=== PATIENT | female | born 1940 | race Caucasian/White ===

== ENCOUNTER 2021-11-19 12:36 | Outpatient (REF) | payer OTHER, SELFPAY ==
--- NOTE | ~2021-11-19 | XR_ITS ---
EXAMINATION: XR LUMBAR SPINE XR THORACIC SPINE XR RIBS CLINICAL INFORMATION: Chest pain, back pain and bilateral rib pain. COMPARISON: None TECHNIQUE: Thoracic spine, 2 views. Chest and bilateral ribs, 3 views. Lumbar spine with bending, 5 views. FINDINGS: THORACIC SPINE: There is a normal thoracic kyphosis. The vertebral heights and alignment are normal. There is mild loss of disc height at all thoracic disc levels with mild spondylosis. No visible acute fracture, dislocation or lytic process is seen. The paravertebral soft tissues are normal. LUMBAR SPINE: There is a mild dextroscoliosis. Lumbar lordosis is maintained normal. There is loss of the L3-L4, L4-L5 and L5-S1 disc heights with mild ventral and left lateral spondylosis at L1-L2 through the L3-L4 disc levels. There is grade 1 anterolisthesis of L3 over L4. CHEST: The lungs are well expanded and clear of an acute process. The heart size and pulmonary vascularity are normal. No gross bony abnormality is seen. There is moderate spondylosis of the dorsal spine. RIBS: Multiple views of the bilateral ribs reveal no visible fracture or bony abnormality. The soft tissues are normal. XR/XR thoracic spine 3V IMPRESSION: Unremarkable dorsal spine exam. Degenerative disc changes at the L3-L4 and L4-L5 disc levels with grade 1 anterolisthesis of L3 over L4. Unremarkable bilateral ribs. Unremarkable chest exam.
--- NOTE | ~2021-11-19 | XR_ITS ---
EXAMINATION: XR LUMBAR SPINE XR THORACIC SPINE XR RIBS CLINICAL INFORMATION: Chest pain, back pain and bilateral rib pain. COMPARISON: None TECHNIQUE: Thoracic spine, 2 views. Chest and bilateral ribs, 3 views. Lumbar spine with bending, 5 views. FINDINGS: THORACIC SPINE: There is a normal thoracic kyphosis. The vertebral heights and alignment are normal. There is mild loss of disc height at all thoracic disc levels with mild spondylosis. No visible acute fracture, dislocation or lytic process is seen. The paravertebral soft tissues are normal. LUMBAR SPINE: There is a mild dextroscoliosis. Lumbar lordosis is maintained normal. There is loss of the L3-L4, L4-L5 and L5-S1 disc heights with mild ventral and left lateral spondylosis at L1-L2 through the L3-L4 disc levels. There is grade 1 anterolisthesis of L3 over L4. CHEST: The lungs are well expanded and clear of an acute process. The heart size and pulmonary vascularity are normal. No gross bony abnormality is seen. There is moderate spondylosis of the dorsal spine. RIBS: Multiple views of the bilateral ribs reveal no visible fracture or bony abnormality. The soft tissues are normal. XR/XR ribs BI min 4V w CXR1V IMPRESSION: Unremarkable dorsal spine exam. Degenerative disc changes at the L3-L4 and L4-L5 disc levels with grade 1 anterolisthesis of L3 over L4. Unremarkable bilateral ribs. Unremarkable chest exam.
--- NOTE | ~2021-11-19 | XR_ITS ---
EXAMINATION: XR LUMBAR SPINE XR THORACIC SPINE XR RIBS CLINICAL INFORMATION: Chest pain, back pain and bilateral rib pain. COMPARISON: None TECHNIQUE: Thoracic spine, 2 views. Chest and bilateral ribs, 3 views. Lumbar spine with bending, 5 views. FINDINGS: THORACIC SPINE: There is a normal thoracic kyphosis. The vertebral heights and alignment are normal. There is mild loss of disc height at all thoracic disc levels with mild spondylosis. No visible acute fracture, dislocation or lytic process is seen. The paravertebral soft tissues are normal. LUMBAR SPINE: There is a mild dextroscoliosis. Lumbar lordosis is maintained normal. There is loss of the L3-L4, L4-L5 and L5-S1 disc heights with mild ventral and left lateral spondylosis at L1-L2 through the L3-L4 disc levels. There is grade 1 anterolisthesis of L3 over L4. CHEST: The lungs are well expanded and clear of an acute process. The heart size and pulmonary vascularity are normal. No gross bony abnormality is seen. There is moderate spondylosis of the dorsal spine. RIBS: Multiple views of the bilateral ribs reveal no visible fracture or bony abnormality. The soft tissues are normal. XR/XR lumbar spine 6V w bending IMPRESSION: Unremarkable dorsal spine exam. Degenerative disc changes at the L3-L4 and L4-L5 disc levels with grade 1 anterolisthesis of L3 over L4. Unremarkable bilateral ribs. Unremarkable chest exam.
[2021-11-19 14:49] LABS: Basophils Absolute Auto 0.1 X10*3/uL (0.0-0.2); Basophils Percent Auto 0.8 % (0-2); Eosinophils Absolute Auto 0.1 X10*3/uL (0.0-0.4); Eosinophils Percent Auto 1.3 % (0-4); Hemoglobin 13.8 g/dl (12.0-16.0); Imm Gran Abs Auto 0.04 X10*3/uL (0.00-0.03); Imm Gran Pct Auto 0.6 % (0.0-0.4); Lymphocytes Absolute Auto 2.1 X10*3/uL (1.2-4.9); Lymphocytes Percent Auto 32.2 % (20-40); MANUAL DIFF FLAG SCAN; Mean Corpuscular HGB Conc 32.9 g/dl (31.0-35.0); Mean Corpuscular Hemoglobin 31.4 pg (27.0-33.0); Mean Corpuscular Volume 95.7 fL (80.0-98.0); Mean Platelet Volume 11.7 fL (9.4-12.3); Monocytes Absolute Auto 0.5 X10*3/uL (0.1-1.2); Monocytes Percent Auto 7.5 % (2-11); Neutrophils Absolute Auto 3.7 x10*3/uL (2.0-8.3); Neutrophils Percent Auto 57.6 % (45-73); PLT CLUMP 1; Red Blood Count 4.39 X10*6/uL (4.20-5.50); Red Cell Distribution Width 13.2 % (11.0-16.0); SCAN SMEAR FLAG 1
[2021-11-19 14:57] LABS: Estimated Average Glucose 160 mg/dL; Hemoglobin A1c % 7.2 %
[2021-11-19 15:17] LABS: Alanine Aminotransferase 18 U/L (0-31); Albumin Level 4.1 g/dL (3.5-5.0); Alkaline Phosphatase 64 U/L (39-117); Anion Gap 10 (12-20); Aspartate Amino Transferase 17 U/L (5-31); Bilirubin Direct 0.2 mg/dL (0.0-0.5); Bilirubin Total 0.6 mg/dL (0.0-1.0); Blood Urea Nitrogen 17 mg/dL (9-16); Calcium 9.6 mg/dL (8.4-10.2); Carbon Dioxide 29 mmol/L (22-29); Chloride 105 mmol/L (96-108); Estimated Glomerular Filt Rate 55; Glucose Random 295 mg/dL (60-115); Potassium 4.8 mmol/L (3.3-5.1); Sodium 139 mmol/L (135-145); Total Protein 6.7 g/dL (6.5-8.0)
[2021-11-19 15:29] LABS: White Blood Count 6.4 X10*3/uL (4.8-10.8)
[2021-11-19 15:30] LABS: Platelet Count 136 X10*3/uL (160-400); SLIDE REVIEW VERIFIED
[2021-11-19 15:48] LABS: Vitamin B12 365 pg/mL (200-900)
[2021-11-22 16:54] LABS: Vitamin D 25-OH, D2 <4 ng/mL; Vitamin D 25-OH, D3 17 ng/mL; Vitamin D 25-OH, Total 17 ng/mL (30-100)
== END 2021-11-19 12:37 | disposition home or self-care (01) ==
LOC: HO.XRAY 12:36
PROVIDERS: PCP Internal Medicine; Visit Provider Nurse Practitioner Family
DX: R07.89 Other chest pain (principal); M47.816 Spondylosis without myelopathy or radiculopathy, lumbar region; K74.60 Unspecified cirrhosis of liver; E11.40 Type 2 diabetes mellitus with diabetic neuropathy, unspecified
CPT/HCPCS: 36415; 71111; 72072; 72114; 80048; 80076; 82306; 82607; 82746; 83036; 85025; 99202

== ENCOUNTER → 2021-11-26 13:08 | Outpatient (BNVA) | payer OTHER, SELFPAY | PROVIDERS: PCP Internal Medicine; Visit Provider Nurse Practitioner Family | DX: M47.816 Spondylosis without myelopathy or radiculopathy, lumbar region (principal); R07.89 Other chest pain; R10.9 Unspecified abdominal pain; R12 Heartburn; E55.9 Vitamin D deficiency, unspecified; K74.60 Unspecified cirrhosis of liver; Z87.19 Personal history of other diseases of the digestive system | CPT/HCPCS: 99212 ==

== ENCOUNTER 2022-05-24 17:48 | Emergency (ER) | payer OTHER, SELFPAY ==
--- NOTE | ~2022-05-24 | XR_ITS ---
EXAMINATION: XR lumbar spine 2-3V, XR hip LT min 2V, XR ribs LT min 3V w CXR1V, XR sacrum coccyx min 2V CLINICAL INFORMATION: Reason for Exam pain, fall COMPARISON: Lumbar spine radiographs 11/19/2021 chest and rib radiographs 11/19/2021 TECHNIQUE: PA chest, 3 views left ribs; 3 views lumbosacral spine; AP pelvis, 2 views left hip; AP and lateral views sacrum and coccyx FINDINGS: Chest and RIBS: The lungs appear clear. No airspace consolidation. No pleural effusion or pneumothorax. Normal cardiomediastinal silhouette and pulmonary vascularity. Suture anchors in the bilateral humeral heads consistent with prior rotator cuff repair. No acute displaced left-sided rib fractures identified. Lumbosacral spine: Approximately 8 mm grade 1 anterolisthesis of L3 upon L4 secondary to advanced facet arthrosis. Minimal retrolisthesis at L2-L3. No additional subluxation. Vertebral body heights are maintained. No acute fracture. Multilevel degenerative disc disease and disc height loss, endplate sclerosis and proliferative change most pronounced at L1-L2 and L2-L3. Suspected ankylosis at L5-S1 associated ankylosis of the facet joints at L4-S1. Extensive aortic and proximal iliac vascular calcifications. Sacrum and coccyx: SI joints are congruent and intact with mild subchondral sclerosis. No acute displaced fracture or dislocation Pelvis and left hip: Healed fracture deformities of the right parasymphyseal pubic bone and right inferior pubic ramus. No acute fracture or dislocation. Mild joint space narrowing at both hips with subchondral sclerosis and osteophytes consistent with mild osteoarthritis. Pubic symphysis is congruent and intact. XR/XR ribs LT min 3V w CXR1V IMPRESSION: 1. No acute pulmonary disease. 2. No acute displaced left-sided rib fracture identified. 3. No acute fracture or dislocation of the pelvis or left hip. 4. No appreciable sacral or coccygeal fracture. 5. Multilevel degenerative disc disease in the lumbar spine. 6. Healed fracture deformities of the right parasymphyseal pubic bone and right inferior pubic ramus. 7. Mild bilateral hip joint osteoarthritis.
--- NOTE | ~2022-05-24 | XR_ITS ---
EXAMINATION: XR lumbar spine 2-3V, XR hip LT min 2V, XR ribs LT min 3V w CXR1V, XR sacrum coccyx min 2V CLINICAL INFORMATION: Reason for Exam pain, fall COMPARISON: Lumbar spine radiographs 11/19/2021 chest and rib radiographs 11/19/2021 TECHNIQUE: PA chest, 3 views left ribs; 3 views lumbosacral spine; AP pelvis, 2 views left hip; AP and lateral views sacrum and coccyx FINDINGS: Chest and RIBS: The lungs appear clear. No airspace consolidation. No pleural effusion or pneumothorax. Normal cardiomediastinal silhouette and pulmonary vascularity. Suture anchors in the bilateral humeral heads consistent with prior rotator cuff repair. No acute displaced left-sided rib fractures identified. Lumbosacral spine: Approximately 8 mm grade 1 anterolisthesis of L3 upon L4 secondary to advanced facet arthrosis. Minimal retrolisthesis at L2-L3. No additional subluxation. Vertebral body heights are maintained. No acute fracture. Multilevel degenerative disc disease and disc height loss, endplate sclerosis and proliferative change most pronounced at L1-L2 and L2-L3. Suspected ankylosis at L5-S1 associated ankylosis of the facet joints at L4-S1. Extensive aortic and proximal iliac vascular calcifications. Sacrum and coccyx: SI joints are congruent and intact with mild subchondral sclerosis. No acute displaced fracture or dislocation Pelvis and left hip: Healed fracture deformities of the right parasymphyseal pubic bone and right inferior pubic ramus. No acute fracture or dislocation. Mild joint space narrowing at both hips with subchondral sclerosis and osteophytes consistent with mild osteoarthritis. Pubic symphysis is congruent and intact. XR/XR lumbar spine 2-3V IMPRESSION: 1. No acute pulmonary disease. 2. No acute displaced left-sided rib fracture identified. 3. No acute fracture or dislocation of the pelvis or left hip. 4. No appreciable sacral or coccygeal fracture. 5. Multilevel degenerative disc disease in the lumbar spine. 6. Healed fracture deformities of the right parasymphyseal pubic bone and right inferior pubic ramus. 7. Mild bilateral hip joint osteoarthritis.
--- NOTE | ~2022-05-24 | CT_ITS ---
EXAMINATION: CT LUMBAR SPINE WITH IV CONTRAST CLINICAL INFORMATION: Question cauda equina. COMPARISON: CT dated 12/27/2012 TECHNIQUE: Multidetector volumetric imaging was obtained through the lumbar spine following intravenous administration of 85 cc Omnipaque 350. Multiplanar reformatted images in coronal and sagittal orientations were submitted. This CT examination was performed using dose optimization techniques as appropriate, variously including the following: *Automated exposure control *Adjustment of mA and/or kV according to patient size (this includes techniques or standardized protocols for targeted exams where dose is matched to indication/reason for exam; i.e. extremities or head) *Use of iterative reconstruction technique DLP: 752 mGy-cm FINDINGS: Bones are osteopenic. Vertebral body heights are normal. No acute fractures. Anterolisthesis of L3 on L4 measures 9 mm and is grade 2. No additional spondylolisthesis. No acute osseous lesions are identified. There is ankylosis of L4-S1. Multilevel degenerative disc disease is characterized by loss of vertebral disc height with endplate osteophytes and disc bulges. There is also marked multilevel facet arthropathy, most severe at L3-L4. Atherosclerotic calcifications are present in the abdominal aorta and iliac arteries. No aneurysmal dilatation. Status post cholecystectomy. No acute intra-abdominal or intrapelvic soft tissue abnormalities are identified on these images. Paraspinal soft tissues are otherwise unremarkable. No enhancing central canal lesions are identified on these images. L1-L2: Mild degenerative disc disease and moderate facet arthropathy. No central canal or neural foraminal encroachment. L2-L3: Diffuse disc bulge with severe facet arthropathy and moderate degenerative disc disease. The disc bulge combines with the facet arthropathy and ligamentum flavum thickening to produce [id number] central canal stenosis. Disc bulge and facet arthropathy produce moderate left neural foraminal encroachment. L3-L4: The grade 2 anterolisthesis combines with severe facet arthropathy, a diffuse disc bulge, and ligamentum thickening to produce severe central stenosis. There is marked narrowing of the subarticular zones, likely producing mass effect upon the traversing L4 nerve roots. There is mild to moderate bilateral neural foraminal encroachment due to the anterolisthesis and uncovering discs. L4-5: Ankylosis at the interbody space and facet joints. Minimal neural foraminal encroachment. L5-S1: Ankylosis at the facet joints and interbody space. No central canal stenosis. Mild mass effect upon the exiting L5 nerve roots in the far lateral position by marginal osteophytes. CT/CT lumbar spine w IV con IMPRESSION: 1. Severe central stenosis at L3-L4 due to grade 2 anterolisthesis, a disc bulge, and ligamentum flavum thickening. 2. [id number] central canal stenosis at L2-L3. 3. Ankylosis of L4-S1.
--- NOTE | ~2022-05-24 | CT_ITS ---
EXAMINATION: CT HEAD WITHOUT CONTRAST CLINICAL INFORMATION: Dizziness. Fall. Mental status change. COMPARISON: None TECHNIQUE: Contiguous axial imaging was performed from the skull base to vertex without intravenous administration of contrast. This CT examination was performed using dose optimization techniques as appropriate, variously including the following: *Automated exposure control *Adjustment of mA and/or kV according to patient size (this includes techniques or standardized protocols for targeted exams where dose is matched to indication/reason for exam; i.e. extremities or head) *Use of iterative reconstruction technique DLP: 701 mGy-cm FINDINGS: There is no evidence of an extra-axial collection. There is no evidence of intra or extra-axial hemorrhage. The ventricles and extra-axial CSF spaces are appropriate for patient's age. There is mild nonspecific periventricular white matter disease. No mass, mass effect or infarct. No skull fracture. Visualized paranasal sinuses, mastoid air cells and middle ears are clear. CT/CT head/brain wo IV con IMPRESSION: No acute findings. Mild nonspecific periventricular white matter disease.
--- NOTE | ~2022-05-24 | XR_ITS ---
EXAMINATION: XR lumbar spine 2-3V, XR hip LT min 2V, XR ribs LT min 3V w CXR1V, XR sacrum coccyx min 2V CLINICAL INFORMATION: Reason for Exam pain, fall COMPARISON: Lumbar spine radiographs 11/19/2021 chest and rib radiographs 11/19/2021 TECHNIQUE: PA chest, 3 views left ribs; 3 views lumbosacral spine; AP pelvis, 2 views left hip; AP and lateral views sacrum and coccyx FINDINGS: Chest and RIBS: The lungs appear clear. No airspace consolidation. No pleural effusion or pneumothorax. Normal cardiomediastinal silhouette and pulmonary vascularity. Suture anchors in the bilateral humeral heads consistent with prior rotator cuff repair. No acute displaced left-sided rib fractures identified. Lumbosacral spine: Approximately 8 mm grade 1 anterolisthesis of L3 upon L4 secondary to advanced facet arthrosis. Minimal retrolisthesis at L2-L3. No additional subluxation. Vertebral body heights are maintained. No acute fracture. Multilevel degenerative disc disease and disc height loss, endplate sclerosis and proliferative change most pronounced at L1-L2 and L2-L3. Suspected ankylosis at L5-S1 associated ankylosis of the facet joints at L4-S1. Extensive aortic and proximal iliac vascular calcifications. Sacrum and coccyx: SI joints are congruent and intact with mild subchondral sclerosis. No acute displaced fracture or dislocation Pelvis and left hip: Healed fracture deformities of the right parasymphyseal pubic bone and right inferior pubic ramus. No acute fracture or dislocation. Mild joint space narrowing at both hips with subchondral sclerosis and osteophytes consistent with mild osteoarthritis. Pubic symphysis is congruent and intact. XR/XR sacrum coccyx min 2V IMPRESSION: 1. No acute pulmonary disease. 2. No acute displaced left-sided rib fracture identified. 3. No acute fracture or dislocation of the pelvis or left hip. 4. No appreciable sacral or coccygeal fracture. 5. Multilevel degenerative disc disease in the lumbar spine. 6. Healed fracture deformities of the right parasymphyseal pubic bone and right inferior pubic ramus. 7. Mild bilateral hip joint osteoarthritis.
--- NOTE | ~2022-05-24 | MR_ITS ---
EXAMINATION: MR LUMBAR SPINE WITHOUT CONTRAST CLINICAL INFORMATION: r/o cauda equina, back pain/urinary retention COMPARISON: CT lumbar spine 05/24/2022 TECHNIQUE: MRI of the lumbar spine was obtained using routine sequences without contrast. FINDINGS: Right convex curvature of the lumbar spine centered at L2-L3. There is right lateral listhesis of L3 on L4. Grade 1 anterolisthesis of L3 on L4 measuring approximately 7 mm. Trace retrolisthesis of L2 on L3. No suspicious marrow signal or focal osseous lesion. T12 vertebral body hemangioma. Endplate marrow edema at L5-S1. The vertebral body heights are maintained. Multilevel degenerative disc desiccation and height loss. There is partial ankylosis across the L5-S1 disc space.. The conus medullaris terminates at the level of L1-L2. The distal spinal cord is normal in appearance. The cauda equina nerve roots appear normal. Symmetric fatty atrophy of the lumbar paravertebral musculature. Limited evaluation of the intra-abdominal structures without significant abnormalities. The abdominal aorta is of normal contour and caliber. Partially visualized left-sided sacral Tarlov cysts. SPINAL LEVELS: T12-L1: No significant spinal canal or neural foraminal narrowing L1-L2: Minimal disc bulge and mild to moderate facet arthropathy. No significant spinal canal or neural foraminal narrowing. L2-L3: Left eccentric disc bulge. Moderate to severe facet arthropathy. Ligamentum flavum thickening. Mild subarticular zone narrowing. No significant central spinal canal stenosis. Mild to moderate right and moderate to severe left neural foraminal narrowing. L3-L4: Anterolisthesis with posterior disc uncovering and superimposed small disc bulge. Severe facet arthropathy. Ligamentum flavum thickening. There is mild to moderate central spinal canal stenosis and bilateral subarticular zone narrowing. Mild bilateral neural foraminal narrowing. L4-L5: Severe facet arthropathy with facet joint ankylosis. No significant spinal canal or neural foraminal narrowing. L5-S1: No significant spinal canal or neural foraminal narrowing MR/MR lumbar spine wo con IMPRESSION: No severe spinal canal stenosis or cauda equina nerve root compression. Multilevel lumbar spondylosis as detailed above, most notable at L3-L4 where there is grade 1 anterolisthesis on the basis of advanced facet arthropathy, mild to moderate central spinal canal stenosis, bilateral subarticular zone narrowing, and mild bilateral neural foraminal narrowing. Neural foraminal narrowing appears worst and moderate to severe on the left at L2-L3.
--- NOTE | 2022-05-24 17:55 | ECG_ITS ---
Test Reason : FALL Blood Pressure : / mmHG Vent. Rate : 076 BPM Atrial Rate : 076 BPM P-R Int : 154 ms QRS Dur : 082 ms QT Int : 376 ms P-R-T Axes : 031 -41 038 degrees QTc Int : 423 ms Normal sinus rhythm Left axis deviation Low voltage QRS Nonspecific T wave abnormality RSR' or QR pattern in V1 suggests right ventricular conduction delay Abnormal ECG No previous ECGs available Referred By: Harper Osullivan Electronically Signed By:JORGE TRAN MD
--- NOTE | 2022-05-24 18:04 | ED.GENADULT ---
HPI - General Adult General Chief complaint: Fall Stated complaint: TRIP/FALL OVER WALKER, BACK PAIN Time Seen by Provider: 05/24/22 17:50 Source: patient and EMS Mode of arrival: EMS Limitations: no limitations History of Present Illness HPI narrative: patient comes to the emergency room complaining of a fall. Patient coming from home via EMS. Patient reports that she was trying to get to the bathroom, patient states that she lost her balance and started walking backwards and then fell backwards landing on the floor. Patient states that she did not hit her head, did not lose consciousness, not on blood thinners. Patient complaining of severe pain in the lower back around the coccyx. Patient has an ecchymosis on the right mcelroy but is not hurting as much as her lower back. Patient also complaining of mild rib pain on the left side. Patient states that she fell 9 hours prior to arrival to emergency room. Patient was able to drag herself back to bed and stayed there until her son found her and called 911. Patient denies loss of consciousness. Patient took Tylenol prior to arrival but states is not helping much. Related Data Home Medications Medication Instructions Recorded Confirmed glipizide 10 mg tablet 10 mg PO BID 11/19/21 metoprolol tartrate 25 mg tablet 25 mg PO BID 11/19/21 rosuvastatin 10 mg tablet 10 mg PO BEDTIME 11/19/21 Previous Rx's Medication Instructions Recorded cholecalciferol (vitamin D3) 50 50 mcg PO DAILY vitamin D 11/26/21 mcg (2,000 unit) capsule deficiency 30 days #30 caps omeprazole 40 mg capsule,delayed 40 mg PO DAILY heartburn 30 days 11/26/21 release #30 caps acetaminophen 650 mg 1,300 mg PO Q12H PRN for pain 30 01/08/22 tablet,extended release days #120 tabs Allergies Allergy/AdvReac Type Severity Reaction Status Date / Time hydromorphone [From DILAUDID] AdvReac Intermediate NAUSEA & Verified 11/26/21 13:16 VOMITING From PLAVIX Allergy Unknown ANAPHYLAXIS Uncoded 11/19/21 12:51 Review of Systems Review of Systems: Constitutional : No Weight loss, No Fever, No Chills, No Night Sweats, No Fatigue, No Malaise ENT/Mouth : No Hearing loss, No Ear Pain, No Nasal Congestion, No Sinus Pain, No Hoarseness, No sore throat, No Rhinorrhea, No Swallowing Difficulty Eyes: No Eye Pain, No Swelling, No Redness, No Foreign Body, No Discharge, No Vision Changes Cardiovascular : No Chest Pain, No SOB, No Dyspnea on Exertion, No Orthopnea, No Edema, No Palpitations Respiratory : No Cough, No Sputum, No Wheezing, No Smoke Exposure, No Dyspnea Gastrointestinal : No Nausea, No Vomiting, No Diarrhea, No Constipation, No abdominal Pain, No Hematochezia, No Melena Genitourinary : no irregular bleeding, No Dysuria, No Urinary Frequency, No Hematuria, No Urinary Incontinence, No Urgency, No Flank Pain, No Urinary Flow Changes, No Hesitancy Musculoskeletal : Complaining of an ecchymosis to the right mcelroy, complaining of pain in the coccyx and in the left ribs posteriorly. Skin : No Skin Lesions, No rash Neuro : No Weakness, No Numbness, No Paresthesias, No Loss of Consciousness, No Dizziness, No Headache Psych : No Anxiety/Panic, No Depression, No SI/HI/AH/VH, No Social Issues, Heme/Lymph: No Bruising, No Bleeding,No Lymphadenopathy Endocrine : No Polyuria, No Polydipsia, No Temperature Intolerance PMFSH Past Medical History Medical History Abdominal pain Cataract Cervical osteoarthritis Chest pain Cirrhosis Coronary artery disease Degenerative joint disease (DJD) of hip Diabetes mellitus Diverticulosis of colon Esophagitis Gastritis Hyperlipidemia Microalbuminuria Peripheral neuropathy Peripheral vascular disease Scalp irritation Tobacco use disorder Surgical History H/O breast surgery H/O colonoscopy H/O esophagogastroduodenoscopy H/O foot surgery History of cholecystectomy History of hysterectomy History of lumbar spinal fusion History of repair of rotator cuff History of tonsillectomy Total knee replacement status Social History Social History Alcohol intake: current Alcohol intake frequency: holidays/special occasions only Alcohol type: wine Smoked in Last 30 Days: Yes Use of substances other than those prescribed or required for medical reasons: No Advance Directives: No Advance Directives Information Provided: No Physical Exam ED Vital Signs: Vital Signs - 24 hr 05/24/22 18:33 05/24/22 18:59 05/24/22 21:24 Temperature 98.1 F 98.1 F 98.2 F Pulse Rate 77 76 78 Respiratory Rate 22 H 16 19 Blood Pressure 154/50 H 154/50 H 117/36 L Pulse Oximetry 100 100 100 Oxygen Delivery Method Room Air Room Air Room Air BMI result Body Mass Index 22.8 Const Other: Appearance: Alert. Oriented X3. Anxious Eyes: Pupils equal, round and reactive to light. ENT: Pharynx normal. Neck: Normal inspection. Neck supple. No lymph nodes noted. No crepitus CVS: Normal heart rate and rhythm. Pulses normal. Normal S1 and S2 Respiratory: No respiratory distress. Breath sounds normal. No Wheezing. No rales Abdomen: Soft and nontender. No rigidity. No distention. back: Pain to palpation over the coccyx area, no pain to palpation over the cervical /thoracic, no palpable step-offs. Skin: Skin warm and dry. Normal skin color. Normal skin turgor. Extremities: No lower extremity edema. 5 cm x 3 cm ecchymosis in the mcelroy on the right leg , does not seem to have significant pain to palpation over the hip area, able to flex and extend. However this triggers pain in the lumbar a Neuro: Oriented X 3. No motor deficit. No sensory deficit. Moving all extremities. No slurred speech. CN 2 through 12 grossly intact Psych: calm, cooperative, normal affect Course Course Course Narrative: patient's x-rays are negative for fracture. Patient complaining of ongoing back pain in the coccyx area. 22:30, I was informed by the patient's nurse that the patient is having difficulty urinating. Earlier today, patient receive opioids. Patient is retaining 664 ML of urine. Lopez will be inserted. Patient has severe neuropathy in her lower extremities, she has almost no sensation. Patient cannot feel the reflex hammer/ sharp objects in her feet. patient has positive patellar reflexes. Digital rectal exam/rectal tone is normal. patient is able to stand but says that her back hurts and radiates down towards the left leg. at this time, we do not have MRI, CT scan pending. Also, I was informed by the patient's nurse and nurse outreach case manager, that the patient's brother wants to pick her up from the hospital and take her home. However, the patient states that she cannot go home because she is in too much pain and is afraid that no one can help her throughout the night. Her brother will be traveling tomorrow. patient is alert and oriented x3, coherent, patient requesting to not be discharge regardless of her brother's requests CT scan shows disc bulging, No signs of cauda equina. urinary retention likely secondary to opioids Case management and physical therapy in the morning. Physician observation started at 00:17 Medications Administered Discontinued Medications Generic Name Dose Route Start Last Admin Trade Name Matt PRN Reason Stop Dose Admin Sodium Chloride 1,000 mls @ 999 mls/hr 05/24/22 17:55 05/24/22 21:41 Ns IVCONT 05/24/22 18:55 Infused .Q1H1M ONE Infusion Iohexol 100 ml 05/24/22 23:18 05/24/22 23:19 Iohexol 350 Mg/Ml 100 Ml Infus..Btl IV 05/24/22 23:19 85 ml ONCE ONE Administration Tramadol HCl 50 mg 05/24/22 18:03 05/24/22 20:38 Tramadol Hcl 50 Mg Tablet PO 05/24/22 18:04 50 mg ONCE ONE Administration Medical Decision Making Lab Data Result diagrams: 05/24/22 19:33 05/24/22 19:33 Labs: Lab Results 05/24/22 05/24/22 05/24/22 Range/Units 19:33 19:33 19:33 WBC 11.2 H (4.8-10.8) X10*3/uL RBC 4.34 (4.20-5.50) X10*6/uL Hgb 13.2 (12.0-16.0) g/dl Hct 40.4 (37.0-47.0) % MCV 93.1 (80.0-98.0) fL MCH 30.4 (27.0-33.0) pg MCHC 32.7 (31.0-35.0) g/dl RDW 12.2 (11.0-16.0) % Plt Count 119 L (160-400) X10*3/uL MPV 9.8 (9.4-12.3) fL Immature Gran % (Auto) 0.4 (0.0-0.4) % Neut % (Auto) 70.0 (45-73) % Lymph % (Auto) 19.6 L (20-40) % Davison % (Auto) 8.8 (2-11) % Eos % (Auto) 0.8 (0-4) % Baso % (Auto) 0.4 (0-2) % Lymph # (Auto) 2.2 (1.2-4.9) X10*3/uL Davison # (Auto) 1.0 (0.1-1.2) X10*3/uL Eos # (Auto) 0.1 (0.0-0.4) X10*3/uL Baso # (Auto) 0.0 (0.0-0.2) X10*3/uL Abs Immat Gran (auto) 0.05 H (0.00-0.03) X10*3/uL Absolute Neuts (auto) 7.9 (2.0-8.3) x10*3/uL Absolute Nucleated RBC 0.000 (0.0-0.012) X10*3/uL Nucleated RBC % (auto) 0.0 (0.0-0.2) /100WBC Sodium 142 (135-145) mmol/L Potassium 4.4 (3.3-5.1) mmol/L Chloride 106 (96-108) mmol/L Carbon Dioxide 26 (22-29) mmol/L Anion Gap 14 (12-20) BUN 20 H (9-16) mg/dL Creatinine 0.87 (0.5-1.4) mg/dL Estim Creat Clear Calc 49.0 Estimated GFR > 60 Random Glucose 81 (60-115) mg/dL Calcium 9.7 (8.4-10.2) mg/dL Total Bilirubin 0.9 (0.0-1.0) mg/dL Direct Bilirubin 0.3 (0.0-0.5) mg/dL AST 43 H (5-31) U/L ALT 30 (0-31) U/L Alkaline Phosphatase 72 (39-117) U/L Total Creatine Kinase (26-140) U/L Troponin I High Sens 5.3 (<3.5-17.0) ng/L Total Protein 6.7 (6.5-8.0) g/dL Albumin 4.0 (3.5-5.0) g/dL Urine Color Urine Appearance Urine pH (5.0-9.0) Ur Specific [place] (1.005-1.025) Urine Protein (Neg-Trace) mg/dL Urine Glucose (UA) (Negative) mg/dL Urine Ketones (Negative) mg/dL Urine Blood (Negative) Urine Nitrite (Negative) Ur Leukocyte Esterase (Negative) Urine RBC (0-2) /HPF Urine WBC (0-5) /HPF Ur Squamous Epith Cells (0-2) /HPF Urine Bacteria (None Seen) Hyaline Casts (0-2) /LPF COVID-19 (JOSSELINE) (Negative) COVID-19 Clin Com 05/24/22 05/24/22 05/24/22 Range/Units 19:33 20:16 23:01 WBC (4.8-10.8) X10*3/uL RBC (4.20-5.50) X10*6/uL Hgb (12.0-16.0) g/dl Hct (37.0-47.0) % MCV (80.0-98.0) fL MCH (27.0-33.0) pg MCHC (31.0-35.0) g/dl RDW (11.0-16.0) % Plt Count (160-400) X10*3/uL MPV (9.4-12.3) fL Immature Gran % (Auto) (0.0-0.4) % Neut % (Auto) (45-73) % Lymph % (Auto) (20-40) % Davison % (Auto) (2-11) % Eos % (Auto) (0-4) % Baso % (Auto) (0-2) % Lymph # (Auto) (1.2-4.9) X10*3/uL [place]ison # (Auto) (0.1-1.2) X10*3/uL Eos # (Auto) (0.0-0.4) X10*3/uL Baso # (Auto) (0.0-0.2) X10*3/uL Abs Immat Gran (auto) (0.00-0.03) X10*3/uL Absolute Neuts (auto) (2.0-8.3) x10*3/uL Absolute Nucleated RBC (0.0-0.012) X10*3/uL Nucleated RBC % (auto) (0.0-0.2) /100WBC Sodium (135-145) mmol/L Potassium (3.3-5.1) mmol/L Chloride (96-108) mmol/L Carbon Dioxide (22-29) mmol/L Anion Gap (12-20) BUN (9-16) mg/dL Creatinine (0.5-1.4) mg/dL Estim Creat Clear Calc Estimated GFR Random Glucose (60-115) mg/dL Calcium (8.4-10.2) mg/dL Total Bilirubin (0.0-1.0) mg/dL Direct Bilirubin (0.0-0.5) mg/dL AST (5-31) U/L ALT (0-31) U/L Alkaline Phosphatase (39-117) U/L Total Creatine Kinase 77 (26-140) U/L Troponin I High Sens (<3.5-17.0) ng/L Total Protein (6.5-8.0) g/dL Albumin (3.5-5.0) g/dL Urine Color Yellow Urine Appearance Clear Urine pH 7.0 (5.0-9.0) Ur Specific [place] 1.015 (1.005-1.025) Urine Protein Negative (Neg-Trace) mg/dL Urine Glucose (UA) Negative (Negative) mg/dL Urine Ketones Negative (Negative) mg/dL Urine Blood Trace H (Negative) Urine Nitrite Negative (Negative) Ur Leukocyte Esterase Negative (Negative) Urine RBC 0-2 (0-2) /HPF Urine WBC 0-5 (0-5) /HPF Ur Squamous Epith Cells 0-2 (0-2) /HPF Urine Bacteria None Seen (None Seen) Hyaline Casts 0-2 (0-2) /LPF COVID-19 (JOSSELINE) Negative (Negative) COVID-19 Clin Com See Note Discharge Plan Discharge Clinical Impression: Fall, Lumbar back pain, Acute urinary retention Patient Disposition: Still a Patient Prescriptions: No Action acetaminophen 650 mg tablet extended release 1,300 mg PO Q12H PRN (Reason: for pain) 30 Days Qty: 120 3RF omeprazole 40 mg capsule,delayed release(DR/EC) 40 mg PO DAILY 30 Days Qty: 30 1RF Rx Instructions: Take it 30 minutes before meals once a day cholecalciferol (vitamin D3) 50 mcg (2,000 unit) capsule 50 mcg PO DAILY 30 Days Qty: 30 3RF glipizide 10 mg tablet 10 mg PO BID rosuvastatin 10 mg tablet 10 mg PO BEDTIME metoprolol tartrate 25 mg tablet 25 mg PO BID
[2022-05-24 18:33] VITALS: BP 150/70; BP 154/50; PULSE 77; PULSE 80; RESP 22; TEMP 36.7; O2SAT 100; BMI 22.8
[2022-05-24 18:59] VITALS: BP 154/50; PULSE 76; RESP 16; TEMP 36.7; O2SAT 100
[2022-05-24 19:37] LABS: MANUAL DIFF FLAG NO
[2022-05-24 19:39] LABS: Basophils Percent Auto 0.4 % (0-2); Eosinophils Absolute Auto 0.1 X10*3/uL (0.0-0.4); Eosinophils Percent Auto 0.8 % (0-4); Hematocrit 40.4 % (37.0-47.0); Hemoglobin 13.2 g/dl (12.0-16.0); Imm Gran Abs Auto 0.05 X10*3/uL (0.00-0.03); Imm Gran Pct Auto 0.4 % (0.0-0.4); Lymphocytes Absolute Auto 2.2 X10*3/uL (1.2-4.9); Lymphocytes Percent Auto 19.6 % (20-40); Mean Corpuscular HGB Conc 32.7 g/dl (31.0-35.0); Mean Corpuscular Hemoglobin 30.4 pg (27.0-33.0); Mean Corpuscular Volume 93.1 fL (80.0-98.0); Mean Platelet Volume 9.8 fL (9.4-12.3); Monocytes Percent Auto 8.8 % (2-11); Neutrophils Absolute Auto 7.9 x10*3/uL (2.0-8.3); Platelet Count 119 X10*3/uL (160-400); Red Blood Count 4.34 X10*6/uL (4.20-5.50); Red Cell Distribution Width 12.2 % (11.0-16.0); White Blood Count 11.2 X10*3/uL (4.8-10.8)
[2022-05-24 19:58] LABS: Alanine Aminotransferase 30 U/L (0-31); Alkaline Phosphatase 72 U/L (39-117); Anion Gap 14 (12-20); Aspartate Amino Transferase 43 U/L (5-31); Bilirubin Direct 0.3 mg/dL (0.0-0.5); Bilirubin Total 0.9 mg/dL (0.0-1.0); Blood Urea Nitrogen 20 mg/dL (9-16); Calcium 9.7 mg/dL (8.4-10.2); Carbon Dioxide 26 mmol/L (22-29); Chloride 106 mmol/L (96-108); Estimated Glomerular Filt Rate > 60; Glucose Random 81 mg/dL (60-115); Potassium 4.4 mmol/L (3.3-5.1); Sodium 142 mmol/L (135-145); Total Protein 6.7 g/dL (6.5-8.0)
[2022-05-24 20:05] LABS: Troponin-I High Sensitivity 5.3 ng/L (<3.5-17.0)
[2022-05-24 20:35] LABS: COVID-19 Test Negative (Negative); IDNOW Serial# 55D5AD1C
[2022-05-24] MEDS: traMADoL HCL 50 MG TABLET PO (20:38)
[2022-05-24] MEDS: 0.9 % Sodium Chloride 1,000 ML 999 ML IVCONT (20:40)
--- NOTE | 2022-05-24 20:42 | PC.NURSE ---
Pt is a/o x 4, pt has IVF running. Pt's + skin turgor, pt has a bump with hematoma on her right lower leg and onher chin from a fall. Pt has petting edema on her ankles bilaterally +2. will continue to monitor.
[2022-05-24 21:24] VITALS: BP 117/36; PULSE 78; RESP 19; TEMP 36.8; O2SAT 100
--- NOTE | 2022-05-24 22:12 | PC.NURSE ---
Christine LOGAN has spoken with patient's family in regards of the plan for physical rehab and case management. Pt is not safe at home due to re current fall and not being able to safely home. Pt has a son who cognitive impair and not being able to take care of her at home.
--- NOTE | 2022-05-24 22:42 | MHC.CM.ED ---
CM spoke with patient's brother on the phone at the request of the nurse, as the brother wants the patient to go home tonight. Brother told RN that he is going away this weekend, and cannot pick her up tomorrow. Brother requesting to speak with his sister. CM requested that he call his sister on her cell phone. CM tried to explain to brother that her medical work up is not yet completed and that with his sister falling, she may need a PT evaluation, with possible STR or Home PT, but he did not want to hear what this marketing writer had to say. Brother called patient. Pt told brother she cannot stand or sit without pain and may need physical therapy. Dr. Osullivan aware of conversation. CM spoke with patient about needing to complete medical work up. If negative, a PT evaluation might be recommended, but it is up to the patient. Patient tells CM she has an adult son at home with brain tumors and ongoing chemotherapy. States she can have her son call other family for help if needed. Patient has no concerns about son being home alone. Pt understands that the final decision regarding care is up to her. CM will follow for discharge needs if necessary.
[2022-05-24 23:08] LABS: Appearance Urine Clear; Color Urine Yellow; Glucose Urine UA Negative (Negative); Leukocyte Esterase Urine Negative (Negative); Nitrite Urine Negative (Negative); Specific Gravity - Urine 1.015 (1.005-1.025); UMIC TRIGGER UACC YES; Urine Blood Trace (Negative); Urine Ketones Negative (Negative); Urine Protein Negative (Neg-Trace)
[2022-05-24 23:13] LABS: Bacteria Urine None Seen (None Seen); Hyaline Casts Urine 0-2 /LPF (0-2); RBC Urine 0-2 /HPF (0-2); Squamous Epithelial Cell Urine 0-2 /HPF (0-2); WBC Urine 0-5 /HPF (0-5)
[2022-05-24] MEDS: iohexoL 350 MG/ML 100 ML INFUS..BTL IV (23:19)
[2022-05-25] VITALS (12 sets, daily range): BP systolic 104–152; BP diastolic 31–54; PULSE 67–81; RESP 13–20; TEMP 36.6–37.2; O2SAT 92–100
--- NOTE | 2022-05-25 00:49 | PC.NURSE ---
Pt had a urinary Cath 16 inserted d/t pt was put on bedpan, but she was not able to urinate. will continue to monitor.
--- NOTE | 2022-05-25 09:12 | PC.NURSE ---
Nanette called regarding med rec
[2022-05-25 11:06] LABS: Glucose, Whole Blood 67 mg/dL (60-115)
--- NOTE | 2022-05-25 12:01 | PHA.MEDREC ---
Pharmacy Consult ? Medication Reconciliation Pharmacy has completed the medication reconciliation. Patient claims to take 30-35 units of lantus depending on levels. Most recent 30 units.
--- NOTE | 2022-05-25 15:49 | PC.NURSE ---
Patient states they prefer hteir insulin at night time. Provider and pharmacy notified
[2022-05-25] MEDS: Metoprolol Tartrate 25 MG TABLET PO (16:24)
[2022-05-25] MEDS: Cholecalciferol (Vitamin D3) 25 MCG TABLET 50 MCG PO (16:25)
[2022-05-25 18:29] LABS: Glucose, Whole Blood 126 mg/dL (60-115)
[2022-05-25 21:16] LABS: Glucose, Whole Blood 227 mg/dL (60-115)
--- NOTE | 2022-05-25 21:29 | PC.NURSE ---
pharmacy contacted for glipizide.
[2022-05-25] MEDS: Acetaminophen 325 MG TABLET 1300 MG PO (22:38)
[2022-05-25] MEDS: Amitriptyline HCl 25 MG TABLET PO (22:39)
[2022-05-25] MEDS: glipiZIDE 10 MG TABLET PO (22:39)
[2022-05-25] MEDS: Aspirin Enteric Coated 81 MG TABLET.DR PO (22:39)
[2022-05-25] MEDS: Atorvastatin Calcium 40 MG TABLET PO (22:39)
[2022-05-25] MEDS: Insulin Glargine,Hum.rec.anlog 100 UNIT/ML 10 ML VIAL 30 UNIT SUBCUT (22:40)
--- NOTE | 2022-05-25 22:40 | PC.NURSE ---
pt a&ox3, reporting 8/10 lower back, medicated per provider order w PRN tylenol for pain.
[2022-05-26 03:16] VITALS: BP 117/42; PULSE 67; RESP 16; TEMP 36.8; O2SAT 96
[2022-05-26 05:35] VITALS: BP 121/49; PULSE 67; RESP 16; TEMP 36.6; O2SAT 95
[2022-05-26 08:33] VITALS: BP 139/50; PULSE 73; RESP 22; O2SAT 100
[2022-05-26] MEDS: Metoprolol Tartrate 25 MG TABLET PO (08:34)
[2022-05-26] MEDS: Ibuprofen 400 MG TABLET PO (08:34)
[2022-05-26] MEDS: Cholecalciferol (Vitamin D3) 25 MCG TABLET 50 MCG PO (08:34)
--- NOTE | 2022-05-26 11:31 | PC.NURSE ---
returned from MRI at this time
[2022-05-26 11:43] VITALS: BP 117/49; PULSE 67; RESP 18; TEMP 36.9; O2SAT 93
[2022-05-26] MEDS: bisacodyL 5 MG TABLET.DR 10 MG PO (12:17)
[2022-05-26] MEDS: glipiZIDE 10 MG TABLET PO ×2 (12:18→23:11)
[2022-05-26 12:20] LABS: Glucose, Whole Blood 140 mg/dL (60-115)
--- NOTE | 2022-05-26 15:08 | PC.NURSE ---
pt assisted off of bed weldon, small firm bowel movement. pt cleaned linens changed, pt repositioned and given warm blankets. pt reporting 8/10 pain, but reports that her pain has improved from yesterday.
[2022-05-26] MEDS: Acetaminophen 325 MG TABLET 1300 MG PO (15:12)
--- NOTE | 2022-05-26 15:15 | PC.NURSE ---
pt medicated w PRN pain medication for 8/10 lower back pain.
--- NOTE | 2022-05-26 16:50 | PC.NURSE ---
spoke w daughter - Kathryn (health care proxy) - looking for update from regarding test results and plan of care, planning on visiting tomorrow, is aware that case management will be available on Friday.
[2022-05-26 17:08] VITALS: BP 130/84; PULSE 70; RESP 18; O2SAT 99
--- NOTE | 2022-05-26 17:09 | PC.NURSE ---
pt reporting that she is feeling lightheaded, vss, reports pain improvement @ 6/10, denies any nausea, provider notified.
[2022-05-26 17:33] LABS: Glucose, Whole Blood 187 mg/dL (60-115)
[2022-05-26 20:12] VITALS: BP 133/59; PULSE 74; RESP 16; TEMP 36.6; O2SAT 95
[2022-05-26 20:26] LABS: Glucose, Whole Blood 122 mg/dL (60-115)
--- NOTE | 2022-05-26 21:09 | PC.NURSE ---
Pt.'s , Seema Gambino called, and was asking for pt.'s medical record number to give to the PCP. This RN got permission from pt. to both speak with his and to provided his medical record number to her. Pt. gave this RN permission to do both. Seema also wanted to leave her number in pt.'s chart - [phone].
[2022-05-26] MEDS: Atorvastatin Calcium 40 MG TABLET PO (22:22)
[2022-05-26] MEDS: Aspirin Enteric Coated 81 MG TABLET.DR PO (22:22)
[2022-05-26] MEDS: Insulin Glargine,Hum.rec.anlog 100 UNIT/ML 10 ML VIAL 30 UNIT SUBCUT (22:22)
--- NOTE | 2022-05-26 22:29 | PC.NURSE ---
Called Pharmacy to request 21:00 doses of Amitriptyline and Glipizide. Pharmacy is sending meds.
--- NOTE | 2022-05-26 23:12 | PC.NURSE ---
21:00 dose Amitriptyline not brought up with Glipizide by pharmacy as requested. Still awaiting med. at this time
[2022-05-26] MEDS: Amitriptyline HCl 25 MG TABLET PO (23:23)
--- NOTE | 2022-05-27 00:17 | PC.NURSE ---
Pt. has had appx. 5-6 episodes of incontinence/loose stool. MD Matthias notified - awaiting orders for Imodium and C. Diff spec.
[2022-05-27 02:09] LABS: CDiff Gene PCR NEGATIVE (Negative)
[2022-05-27] MEDS: Acetaminophen 325 MG TABLET 1300 MG PO ×2 (04:50→17:57)
--- NOTE | 2022-05-27 04:52 | PC.NURSE ---
pt requesting Tylenol for 10/10 pain to leg. given per sep. pt also states she does not want the nurses to give her amitriptyline tomorrow as it is making her very dizzy and she states she does not take this med at home anymore.
[2022-05-27 07:44] LABS: Glucose, Whole Blood 138 mg/dL (60-115)
[2022-05-27 09:28] VITALS: BP 138/65; PULSE 77; RESP 14; TEMP 36.8; O2SAT 98
[2022-05-27] MEDS: glipiZIDE 10 MG TABLET PO ×2 (09:32→21:07)
[2022-05-27] MEDS: Metoprolol Tartrate 25 MG TABLET PO (09:32)
[2022-05-27] MEDS: Cholecalciferol (Vitamin D3) 25 MCG TABLET 50 MCG PO (09:32)
[2022-05-27 11:24] VITALS: BP 138/65; PULSE 77; O2SAT 98
--- NOTE | 2022-05-27 13:04 | MHC.CM.ED ---
Addendum entered by Coni Peña 05/27/22 18:18: CM met with patient. Patient aware that [facility] has offered a bed. Insurance needs to authorize payment. Pt state that it is painful to move. Encourage pt to ask for pain medication and explained importance of working with PT in the morning to participate in PT. Pt acknowledges understanding. Pt daughter, Kathryn called for an update. Above shared with her. Daughter tells CM that her mother has been dealing with vague back pain/chest pain for a year and no one has figured out what was wrong. States her mother is hesitant to take pain medication. Daughter is aware that [facility] has offered a bed, her mother has accepted and we are waiting for insurance auth. Also aware that her mother may need another PT evaluation that she participates more in. Kathryn asked that she be called in any questions/concerns. CM to follow for d/c needs. Addendum entered by Amber Smith 05/27/22 14:08: Received notification from Karla LOGAN that [facility] is now patient's first choice. [facility] Del Castillo made aware. [facility] asked to go for ins auth. Patient was unable to transfer out of bed due to pain. May need additional note from physical therapy with better pain control demonstrated. Original Note: Patient remains in ER. Physical therapy eval completed. Short term rehab is recommended. Patient told therapist [facility] and [facility] are patient's 2 choices for STR. T/W made referrals to [facility] and [facility]. Neither facility is contracted with [facility]. Referral broadcasted in [facility]. [facility], [facility], [facility]. [facility], [facility], [facility], [facility] are able to offer beds. Patient agreeable to accepting bed at [facility]. [facility] made aware and asked to obtain insurance auth. Continue to monitor for d/c needs.
[2022-05-27 15:17] VITALS: BP 146/58; PULSE 75; RESP 16; TEMP 36.6; O2SAT 95
--- NOTE | 2022-05-27 15:37 | PC.NURSE ---
pt resting comfortably in bed. NAD at this time. ED provider Margret was by to explain MRI results to the pt. pt able to make her needs met, at this time she awaits placement at SNF.
--- NOTE | 2022-05-27 18:06 | PC.NURSE ---
call to pharmacy for Meclazine not available in pyxis
[2022-05-27 18:27] LABS: Glucose, Whole Blood 127 mg/dL (60-115)
[2022-05-27 18:27] LABS: Glucose, Whole Blood 144 mg/dL (60-115)
--- NOTE | 2022-05-27 18:38 | PC.NURSE ---
per pt daughter: pt received a script for Pregablin 75 mg Capsules that she never started because she read the side effects and the med freaked her out . pt reporting now she would like to start taking the medication as she reports severe pain in her feet and legs. medication added to pts medication reconciliation. pt also requesting and change to her Tylenol order. currently pt receiving 1,300 mg every 12 hours, request made for smaller doses at more frequent intervals. t/w will reach out to covering midlevel for follow up.
--- NOTE | 2022-05-27 20:00 | PC.NURSE ---
assumed care of patient at 1900. patient resting comfortably on stretcher. pharmacy delivered meclizine 25 mg tablet. per previous RN, meclizine to be given in AM prior to PT eval. this AM patient stated she was too dizzy to participate in PT eval.
[2022-05-27] MEDS: Aspirin Enteric Coated 81 MG TABLET.DR PO (20:44)
[2022-05-27] MEDS: Insulin Glargine,Hum.rec.anlog 100 UNIT/ML 10 ML VIAL 30 UNIT SUBCUT (20:44)
[2022-05-27] MEDS: Meclizine HCl 25 MG TABLET PO (20:45)
--- NOTE | 2022-05-27 20:47 | PC.NURSE ---
pt requesting dose of meclizine now for the dizziness. states even just laying in bed she feels like the room is spinning. 25mg po administered. meclizine is ordered 3x/day PRN so patient will be able to have dose in AM prior to PT as well.
--- NOTE | 2022-05-27 21:02 | PC.NURSE ---
glipizide po requested from pharmacy. not available in overflow pyxis
[2022-05-27] MEDS: Atorvastatin Calcium 40 MG TABLET PO (21:10)
[2022-05-27 22:24] VITALS: BP 119/58; PULSE 75; RESP 14; TEMP 36.4; O2SAT 95
--- NOTE | 2022-05-28 03:54 | PC.NURSE ---
pt sleeping comfortably on stretcher, respirations even and unlabored, no apparent distress.
[2022-05-28 06:46] VITALS: BP 124/58; PULSE 71; RESP 14; TEMP 36.4; O2SAT 97
--- NOTE | 2022-05-28 06:51 | PC.NURSE ---
Pt repositioned in the bed and bed pad changed. Pt chao emptied and call saez placed in reach
[2022-05-28] MEDS: Meclizine HCl 25 MG TABLET PO (08:25)
[2022-05-28] MEDS: Acetaminophen 325 MG TABLET 1300 MG PO (08:25)
[2022-05-28] MEDS: Metoprolol Tartrate 25 MG TABLET PO (08:25)
[2022-05-28] MEDS: Cholecalciferol (Vitamin D3) 25 MCG TABLET 50 MCG PO (08:26)
[2022-05-28] MEDS: glipiZIDE 10 MG TABLET PO ×2 (10:53→20:16)
[2022-05-28 11:01] VITALS: BP 124/58; PULSE 71; O2SAT 97
--- NOTE | 2022-05-28 13:08 | MHC.CM.ED ---
Patient remains in ER overflow. [facility] requesting additional physical therapy note be provided showing patient is able to attempt to get out of bed. Physical therapy note done. Patient did great with physical therapy. Clinical updates sent to [facility]. Will transfer to [facility] when insurance auth is obtained. Continue to monitor for d/c needs.
[2022-05-28 14:38] VITALS: BP 137/50; PULSE 75; RESP 14; TEMP 35.7; O2SAT 98
[2022-05-28 20:00] LABS: Glucose, Whole Blood 282 mg/dL (60-115)
[2022-05-28] MEDS: Amitriptyline HCl 25 MG TABLET PO (20:15)
[2022-05-28] MEDS: Aspirin Enteric Coated 81 MG TABLET.DR PO (20:15)
[2022-05-28] MEDS: Atorvastatin Calcium 40 MG TABLET PO (20:16)
[2022-05-28] MEDS: Insulin Glargine,Hum.rec.anlog 100 UNIT/ML 10 ML VIAL 30 UNIT SUBCUT (20:16)
[2022-05-28 20:27] VITALS: BP 137/53; PULSE 78; RESP 16; TEMP 36.7; O2SAT 98
[2022-05-29] MEDS: Acetaminophen 325 MG TABLET 975 MG PO ×2 (02:32→10:17)
--- NOTE | 2022-05-29 02:37 | PC.NURSE ---
Patient alert and oriented x3, VSS. POC 282, at bedtime. Glipizide and Lantus 20 units administered per MAR. Patient continues to c/o neuropathic pain in b/l lower legs and requesting her home dose of Lyrica 75 mg BID to be scheduled. Jean, provider notified, per Jean Lyrica is on hold at this time. patient informed and in agreement. Tylenol dose adjusted per pt's request to 975 mg PO TID. Tylenol 975 mg PRN administered at 02:45 am-effect pending.
[2022-05-29 04:09] VITALS: RESP 14
--- NOTE | 2022-05-29 04:10 | PC.NURSE ---
Patient is resting comfortably with her eyes closed. RR 14, no s/s of pain/discomfort noted.
[2022-05-29 07:04] LABS: Glucose, Whole Blood 99 mg/dL (60-115)
[2022-05-29 07:41] VITALS: BP 145/56; PULSE 75; TEMP 36.7; O2SAT 96
[2022-05-29] MEDS: glipiZIDE 10 MG TABLET PO (07:47)
[2022-05-29] MEDS: Metoprolol Tartrate 25 MG TABLET PO (07:47)
[2022-05-29] MEDS: Cholecalciferol (Vitamin D3) 25 MCG TABLET 50 MCG PO (07:47)
--- NOTE | 2022-05-29 07:53 | PC.NURSE ---
pt is a/o x 4 no sob/balaji noted speaks in full sentences. lungs - slight crackles all lobes. heart sounds regular. abd soft and non-tender, bx + x 4 quad. last bm was friday (small). pt states that she got a stool softner on friday which resulted in diarrhea x 5. pt ate 100% of breakfast. no edema noted r lower leg deep purple discoloration noted (s/p fall). pt aware of plan of care.
--- NOTE | 2022-05-29 08:00 | PC.NURSE ---
pt's daughter mesfin burnette ([phone]) called [facility] [place] was updated on pt status.
--- NOTE | 2022-05-29 08:00 | PC.NURSE ---
Emptied 1350mL of urine from pts chao.
--- NOTE | 2022-05-29 09:30 | PC.NURSE ---
pt c/o head pain 10/14 states that she is not sure if she had hit her head before s/p fall. mlp (jessica) aware. ct scan to be ordered. pt a/o x 4, neuros - wnl, no neuro deficit noted. [facility]. pt/daughter aware of plan of care for ct scan.
[2022-05-29] MEDS: Meclizine HCl 25 MG TABLET PO (10:17)
[2022-05-29 10:22] VITALS: BP 140/57; PULSE 66
[2022-05-29 10:23] VITALS: BP 120/61; BP 124/56; PULSE 69; PULSE 76
--- NOTE | 2022-05-29 10:30 | PC.NURSE ---
pt c/o dizziness, med x 1 with meclazine prn order. pt transported to ct scan by transporter ([place]).
[2022-05-29] MEDS: Pregabalin 75 MG CAPSULE PO (10:31)
--- NOTE | 2022-05-29 12:27 | PC.NURSE ---
pt states that 6/10 generalized body pain/disc, head pain remains at 4/10.
[2022-05-29 13:15] LABS: Glucose, Whole Blood 97 mg/dL (60-115)
--- NOTE | 2022-05-29 13:17 | MHC.CM.ED ---
Patient remains in ER. [facility] has obtained insurance auth. Patient can leave at 4pm. Margret BERMUDEZ booked. Med [facility] with chart. Patient, Lauren RN and Rivka FUENTES aware. Continue to monitor for d/c needs.
--- NOTE | 2022-05-29 13:21 | PC.NURSE ---
pt states that her daughter crystal is her (hcp) and all/any info can be given to her at any time. pt/daughter aware of plan of care for pt to be transferred to [facility] at 1600 today via ambulance.
--- NOTE | 2022-05-29 13:47 | PC.NURSE ---
rn to rn report given to qian at [facility] ([phone]). pt to continue with chao cath to snf. pt aware of plan of care.
--- NOTE | 2022-05-29 14:02 | PC.NURSE ---
Pt was washed up and transistioned to a chair. emptied 400mL of urine from chao. Urine was clear yellow and odorless.
== END 2022-05-29 15:46 | disposition skilled nursing facility (03) ==
PROVIDERS: Student in an Organized Health Care Education/Training Program; Emergency Provider Emergency Medicine
DX: R42 Dizziness and giddiness (principal); R07.89 Other chest pain; M54.50 Low back pain, unspecified; R51.9 Headache, unspecified; R26.81 Unsteadiness on feet; Z20.822 Contact with and (suspected) exposure to COVID-19; Z79.899 Other long term (current) drug therapy
CPT/HCPCS: 36415; 70450; 71101; 72100; 72132; 72148; 72220; 73502; 80048; 80076; 81001; 82550; 82947; 84484; 85025; 87493; 87635; 93005; 97162; 97530; 99285; Q9967

== ENCOUNTER 2023-04-18 14:45 | Emergency (ER) | payer OTHER, SELFPAY ==
--- NOTE | ~2023-04-18 | US_ITS ---
EXAMINATION: US VENOUS ULTRASOUND WITH DOPPLER LOWER EXTREMITY, RIGHT CLINICAL INFORMATION: Right lower extremity pain and swelling with redness. COMPARISON: None available. TECHNIQUE: Ultrasound of the deep veins is performed from the hip to the calf with compression sonography and color and pulse Doppler assessment. Spectral analysis with color-flow imaging is performed. FINDINGS: There is normal venous compression and respiratory variation and augmented flow. The visualized common femoral vein, superficial femoral vein, profunda femoral vein, popliteal vein, and the trifurcation region shows no evidence of deep venous thrombosis. There is no significant popliteal fossa cyst. If the patient's symptoms persist, followup ultrasound in 5 days 7 days might be of value to exclude proximal propagation from a non-visualized calf vein. US/US venous duplex LE RT IMPRESSION: No DVT demonstrated in the right lower extremity.
--- NOTE | ~2023-04-18 | XR_ITS ---
X-RAY RIGHT ANKLE AND RIGHT FOOT CLINICAL HISTORY: Worsening toe infection. COMPARISON: Radiograph right ankle 03/30/2009. Radiograph right foot 03/30/2009. TECHNIQUE: 2 views of the right ankle and 3 views of the right foot. FINDINGS: Diffuse soft tissue swelling, more noticeable circumferentially around the ankle with scattered vascular calcifications. Heterogeneous appearance of the bone marrow as well as background of multifocal degenerative osteoarthritis with scattered spurring, limiting assessment of fine osseous details. Chronic fracture at the base of the fifth metatarsal. Nonspecific focal deformity the tuft of the distal first phalanx as well as head of the fifth metatarsal. Nonspecific focal increased lucency along the surface of the lateral malleolus. XR/XR ankle RT min 3V IMPRESSION: 1. Nonspecific focal increased lucency along the surface of the lateral malleolus. Nonspecific focal deformity of the tuft of the distal first phalanx as well as the head of the fifth metatarsal. Recommend correlation with physical examination, and if indicated further characterization with MRI. 2. Chronic fracture at the base of the fifth metatarsal. 3. Heterogeneous appearance of the bone marrow with moderate multifocal osteoarthritis. 4. Diffuse soft tissue swelling, more noticeable around the ankle.
--- NOTE | ~2023-04-18 | XR_ITS ---
X-RAY RIGHT ANKLE AND RIGHT FOOT CLINICAL HISTORY: Worsening toe infection. COMPARISON: Radiograph right ankle 03/30/2009. Radiograph right foot 03/30/2009. TECHNIQUE: 2 views of the right ankle and 3 views of the right foot. FINDINGS: Diffuse soft tissue swelling, more noticeable circumferentially around the ankle with scattered vascular calcifications. Heterogeneous appearance of the bone marrow as well as background of multifocal degenerative osteoarthritis with scattered spurring, limiting assessment of fine osseous details. Chronic fracture at the base of the fifth metatarsal. Nonspecific focal deformity the tuft of the distal first phalanx as well as head of the fifth metatarsal. Nonspecific focal increased lucency along the surface of the lateral malleolus. XR/XR foot RT min 3V IMPRESSION: 1. Nonspecific focal increased lucency along the surface of the lateral malleolus. Nonspecific focal deformity of the tuft of the distal first phalanx as well as the head of the fifth metatarsal. Recommend correlation with physical examination, and if indicated further characterization with MRI. 2. Chronic fracture at the base of the fifth metatarsal. 3. Heterogeneous appearance of the bone marrow with moderate multifocal osteoarthritis. 4. Diffuse soft tissue swelling, more noticeable around the ankle.
[2023-04-18 14:57] VITALS: BP 152/68; PULSE 73; O2SAT 98
[2023-04-18 15:11] VITALS: BP 136/48; PULSE 68; RESP 14; TEMP 36.6; O2SAT 97; BMI 27.9
--- NOTE | 2023-04-18 16:23 | ED_ITS ---
HPI - General Adult General Chief complaint: General Medical Stated complaint: RULE OUT DVT R LEG Time Seen by Provider: 04/18/23 15:59 Source: patient, EMS, RN notes reviewed and old records reviewed Mode of arrival: EMS Limitations: no limitations History of Present Illness HPI narrative: 82 year old female with a pmhx of CAD, HDL, PVD, DM with neuropathy, cirrhosis, diverticulosis, and DJD presents to the ED today via EMS from home with complaint of right lower leg swelling x3 days. Patient admits to recent hospitalization x2 at [facility] where she was admitted for IV antibiotic therapy (for a total of 12 days) after right toe infection s/p hitting her right foot on a heating grate. Wounds are dressed via VNA every M//. She reports worsening swelling/ erythema to the right ankle/ calf area along with burning sensation to the right ankle. Pain is exacerbated with movement of the ankle and leg. Admits that this will happen occasionally and will resolve on it's own. Her VNA sent her to the ED today for DVT r/o. She presents with right foot dressing (clean, dry, intact) and surgical shoe. States she is able to ambulate with her cane. Denies fever, chills, cp, SOB, N/V, numbness/tingling/weakness to LE. Related Data Home Medications Medication Instructions Recorded Confirmed glipizide 10 mg tablet 10 mg PO BID 11/19/21 05/25/22 metoprolol tartrate 25 mg tablet 25 mg PO DAILY 11/19/21 05/25/22 rosuvastatin 10 mg tablet 10 mg PO BEDTIME 11/19/21 05/25/22 acetaminophen 650 mg 2 caplet PO Q12H PRN pain 05/25/22 05/25/22 tablet,extended release amitriptyline 25 mg tablet 1 tab PO BEDTIME 05/25/22 05/25/22 aspirin 81 mg tablet,delayed 81 mg PO BEDTIME 05/25/22 05/25/22 release insulin glargine 100 unit/mL (3 30 unit subcut BEDTIME 05/25/22 05/25/22 mL) subcutaneous pen (Lantus Solostar U-100 Insulin) pregabalin 75 mg capsule 1 cap PO BID 05/27/22 05/27/22 Previous Rx's Medication Instructions Recorded cholecalciferol (vitamin D3) 50 50 mcg PO DAILY vitamin D 11/26/21 mcg (2,000 unit) capsule deficiency 30 days #30 caps Allergies Allergy/AdvReac Type Severity Reaction Status Date / Time metformin Allergy Unknown Verified 04/18/23 15:17 hydromorphone [From DILAUDID] AdvReac Intermediate NAUSEA & Verified 04/18/23 15:17 VOMITING From PLAVIX Allergy Unknown ANAPHYLAXIS Uncoded 11/19/21 12:51 Review of Systems 2 Review of Systems: Constitutional: No fever, chills, fatigue, night sweats, weight changes ENT/Mouth: No ear pain, hearing loss, nasal congestion, sinus pain, rhinorrhea, sore throat Eyes: No eye pain, swelling, redness, vision changes, discharge Cardio: No chest pain, palpitations, JOYNER, orthopnea, peripheral edema Pulm: No SOB, cough, sputum, wheezing, dyspnea, hemoptysis GI: No nausea, vomiting, hematemesis, abdominal pain, diarrhea, constipation, hematochezia, melena : No irregular bleeding, dysuria, frequency, urgency, hesitancy, hematuria, flank pain, urinary flow changes, urinary incontinence or retention MSK: No back pain, neck pain, joint pain, myalgias, +Right leg edema/ erythema Skin: No lesions, rashes Neuro: No weakness, numbness, paresthesias, LOC, dizziness, headache Psych: No anxiety/panic, depression, SI/HI, AH/VH All other systems reviewed and are negative. [facility] Past Medical History Attestation statement: The following information was validated with the patient. Source: old records reviewed and nursing notes reviewed Medical History Cataract Tobacco use disorder Degenerative joint disease (DJD) of hip Diverticulosis of colon Cervical osteoarthritis Hyperlipidemia Cirrhosis Coronary artery disease Scalp irritation Peripheral neuropathy Esophagitis Gastritis Chest pain Abdominal pain Peripheral vascular disease Diabetes mellitus Microalbuminuria Surgical History History of lumbar spinal fusion History of tonsillectomy History of repair of rotator cuff History of hysterectomy H/O foot surgery H/O colonoscopy History of cholecystectomy H/O esophagogastroduodenoscopy H/O breast surgery Total knee replacement status Social History Social History Alcohol intake: unknown Smoked in Last 30 Days: No Use of substances other than those prescribed or required for medical reasons: No Advance Directives: Yes Advance Directives on File: Yes Advance Directives Date on File: 05/27/22 Physical Exam ED Vital Signs: Vital Signs - 24 hr 04/18/23 15:11 04/18/23 19:11 Temperature 97.9 F Pulse Rate 68 92 Respiratory Rate 14 18 Blood Pressure 136/48 L 148/50 H Pulse Oximetry 97 96 Oxygen Delivery Method Room Air Room Air BMI result Body Mass Index 27.9 Vital signs stable. Const General: cooperative, no acute distress, alert and awake Orientation/consciousness: patient oriented x3 Limitations: no limitations [facility] Head: Yes normal to inspection Ears: hearing grossly normal bilaterally General nose exam: Normal external nose present Eyes General: appearance normal, both eyes and all related structures Conjunctivae: conjunctivae normal Sclerae: sclerae normal Pupils: Equal, round and reactive pupils present EOM: EOMs intact bilaterally Neck Neck: Yes normal visual inspection, Yes no lymphadenopathy and Yes no meningeal signs Resp Effort & Inspection: normal respiratory effort and able to speak in complete sentences Auscultation: clear to auscultation bilaterally, no rales, no rhonchi and no wheezes Cardio Rate: regular rate Rhythm: regular rhythm Peripheral pulses: Peripheral pulses 2+ throughout Neuro General: patient oriented x3, gait normal, moves all extremities and no meningeal signs Cranial nerves: Yes CN's II-XII intact bilaterally and Yes Equal, round and reactive pupils present Extrem Other: Refer to images below + Right lower leg with circumfrential erythema and 2+ pitting edema. No lymphangitis. + Chronic healing wounds noted to 2-4th toes on right foot. No active bleeding or discharge. No areas of necrosis. + Strength 5/5 throughout. Capillary refill <2 sec throughout. + 2+ DP/PT pulses. + Negative lauren sign b/l. General: Yes normal to inspection, Yes full ROM and Yes no calf tenderness Course Course Course Narrative: 1757-- CBC without leukocytosis. BUN elevated to 27 > IVF fluids ordered. Chemistry without other acute electrolyte abnormality requiring intervention. Xray of right foot/ankle without acute fracture, agree with radiologist's interpretation. 1926-- Venous duplex US of rle without acute clot. Patient's presentation is most consistent with chronic venous insufficiency. > Case discussed with my attending physician Dr. Dowd who also evaluated the patient. Given unremarkable workup, patient may be discharge home with pcp follow up. Discussed return precautions. All questions answered at this time. She is agreeable with disposition and stable for discharge. Medications Administered Discontinued Medications Generic Name Dose Route Start Last Admin Trade Name Freq PRN Reason Stop Dose Admin Sodium Chloride 1,000 mls @ 999 mls/hr 04/18/23 18:00 04/18/23 19:24 Ns IV 04/18/23 19:00 Infused .Q1H1M NIGEL Infusion Medical Decision Making Medical Decision Making [facility] Narrative: 82 year old female with a pmhx of CAD, HDL, PVD, DM with neuropathy, cirrhosis, diverticulosis, and DJD presents to the ED today via EMS from home with complaint of right lower leg swelling x3 days. Vital signs are stable, afebrile and not tachycardic. Healing wounds to 2-4 toes on fight foot. Erythema, warmthm and 2+ pitting edema to right lower leg. Negative lauren sign b/l. 2+ PT/DP pulses b/l. Capillary refill <2 sec b/l. Clinical concern for chronic venous insufficiency, cellulitis, osteomyelitis, DVT, phlebitis, PVD, diabetic neuropathy. Unlikely acute fracture, dislocation, msk sprain/strain. Unlikely arterial occlusion, compartment syndrome, NV compromise, or threat to limb. No concern for sepsis. Plan at this time is to obtain basic labs, xray right foot/ankle, vv duplex US of right LE, and re-evaluation. Differential Diagnosis Differential Diagnoses: The differential diagnosis associated with the presentation includes As above. Admission/Observation Not indicated. Lab Data [facility] Lab Attestation statement: I reviewed the patient's lab results. As above. 04/18/23 16:55 04/18/23 16:55 Labs: Lab Results 04/18/23 04/18/23 Range/Units 16:55 19:05 WBC 6.0 (4.8-10.8) X10*3/uL RBC 4.41 (4.20-5.50) X10*6/uL Hgb 11.5 L (12.0-16.0) g/dl Hct 37.2 (37.0-47.0) % MCV 84.4 (80.0-98.0) fL MCH 26.1 L (27.0-33.0) pg MCHC 30.9 L (31.0-35.0) g/dl RDW 15.6 (11.0-16.0) % Plt Count 130 L (160-400) X10*3/uL MPV 9.8 (9.4-12.3) fL Immature Gran % (Auto) 0.3 (0.0-0.4) % Neut % (Auto) 56.8 (45-73) % Lymph % (Auto) 29.8 (20-40) % Peach % (Auto) 8.4 (2-11) % Eos % (Auto) 4.2 H (0-4) % Baso % (Auto) 0.5 (0-2) % Lymph # (Auto) 1.8 (1.2-4.9) X10*3/uL Peach # (Auto) 0.5 (0.1-1.2) X10*3/uL Eos # (Auto) 0.3 (0.0-0.4) X10*3/uL Baso # (Auto) 0.0 (0.0-0.2) X10*3/uL Abs Immat Gran (auto) 0.02 (0.00-0.03) X10*3/uL Absolute Neuts (auto) 3.4 (2.0-8.3) x10*3/uL Absolute Nucleated RBC 0.000 (0.0-0.012) X10*3/uL Nucleated RBC % (auto) 0.0 (0.0-0.2) /100WBC ESR 18 (0-20) MM/HR PT 13.7 H (11.1-13.3) SEC INR 1.1 (0.9-1.1) Sodium 145 (135-145) mmol/L Potassium 3.9 (3.3-5.1) mmol/L Chloride 105 (96-108) mmol/L Carbon Dioxide 30 H (22-29) mmol/L Anion Gap 14 (12-20) BUN 27 H (9-16) mg/dL Creatinine 0.97 (0.5-1.4) mg/dL Estim Creat Clear Calc 49.1 Estimated GFR 55 POC Glucose 60 (60-115) mg/dL Random Glucose 96 (60-115) mg/dL Calcium 9.3 (8.4-10.2) mg/dL Magnesium 2.1 (1.6-2.6) mg/dL C-Reactive Protein 0.15 (< or = 0.50) mg/dL Independent Interpretation I performed an independent interpretation of an: Plain X-Ray and Ultrasound Interpretation: Xray right foot/ankle with diffuse soft tissue swelling and osteoarthritic changes, agree with radiologist's interpretation. US right lower extremity without acute clot, agree with radiologist's interpretation. Radiology Impression Discussion of test interpretation with radiology: I have reviewed the radiologist's reading. Radiologist Impression: XR ankle/foot RT min 3V IMPRESSION: 1. Nonspecific focal increased lucency along the surface of the lateral malleolus. Nonspecific focal deformity of the tuft of the distal first phalanx as well as the head of the fifth metatarsal. Recommend correlation with physical examination, and if indicated further characterization with MRI. 2. Chronic fracture at the base of the fifth metatarsal. 3. Heterogeneous appearance of the bone marrow with moderate multifocal osteoarthritis. 4. Diffuse soft tissue swelling, more noticeable around the ankle. US venous duplex LE RT IMPRESSION: No DVT demonstrated in the right lower extremity. Independent Historian Clinical information obtained from an independent historian. History obtained from or confirmed by: EMS External Record Review External record reviewed: Inpatient record, Office record, Outpatient record, Prior outpatient labs, Prior outpatient radiology, Primary care record and Outside ED record Prescription Management I considered prescription management with: Pain Medication Chronic Conditions Patient?s care impacted by: Diabetes, Hypertension and Other (PVD) Critical Care Time Critical Care Time Critical Care Time: No Discharge Plan Discharge Clinical Impression: Chronic venous insufficiency Patient Disposition: Home, Self-Care Instructions: Peripheral Vascular Disease (ED), Venous Insufficiency (DC) Additional Instructions: Your lab work up today was unremarkable. The xrays of your right foot/ankle did not show acute infection of the bone. The ultrasound of your right lower leg did not show clot. The swelling and color changes noted to your right leg are consistent with chronic venous insufficiency. Continue following up with your visiting nurse for wound dressing. Please follow up with your primary care doctor. Return to the ED if your symptoms persist or worsen. Prescriptions: No Action amitriptyline 25 mg tablet 1 tab PO BEDTIME insulin glargine [Lantus Solostar U-100 Insulin] 100 unit/mL (3 mL) insulin pen 30 unit subcut BEDTIME aspirin 81 mg Tablet,Delayed Release (Dr/Ec) 81 mg PO BEDTIME acetaminophen 650 mg tablet extended release 2 caplet PO Q12H PRN (Reason: pain) pregabalin 75 mg capsule 1 cap PO BID cholecalciferol (vitamin D3) 50 mcg (2,000 unit) capsule 50 mcg PO DAILY 30 Days Qty: 30 3RF glipizide 10 mg tablet 10 mg PO BID rosuvastatin 10 mg tablet 10 mg PO BEDTIME metoprolol tartrate 25 mg tablet 25 mg PO DAILY Interventions: ED Discharge Assessment Last Done: 04/18/23 20:08 Discharge Date/Time: 04/18/23 20:08
[2023-04-18 16:59] LABS: MANUAL DIFF FLAG NO
[2023-04-18 17:00] LABS: Basophils Percent Auto 0.5 % (0-2); Eosinophils Absolute Auto 0.3 X10*3/uL (0.0-0.4); Eosinophils Percent Auto 4.2 % (0-4); Hematocrit 37.2 % (37.0-47.0); Hemoglobin 11.5 g/dl (12.0-16.0); Imm Gran Abs Auto 0.02 X10*3/uL (0.00-0.03); Imm Gran Pct Auto 0.3 % (0.0-0.4); Lymphocytes Absolute Auto 1.8 X10*3/uL (1.2-4.9); Lymphocytes Percent Auto 29.8 % (20-40); Mean Corpuscular HGB Conc 30.9 g/dl (31.0-35.0); Mean Corpuscular Hemoglobin 26.1 pg (27.0-33.0); Mean Corpuscular Volume 84.4 fL (80.0-98.0); Mean Platelet Volume 9.8 fL (9.4-12.3); Monocytes Absolute Auto 0.5 X10*3/uL (0.1-1.2); Monocytes Percent Auto 8.4 % (2-11); Neutrophils Absolute Auto 3.4 x10*3/uL (2.0-8.3); Neutrophils Percent Auto 56.8 % (45-73); Platelet Count 130 X10*3/uL (160-400); Red Blood Count 4.41 X10*6/uL (4.20-5.50); Red Cell Distribution Width 15.6 % (11.0-16.0)
[2023-04-18 17:05] LABS: INTERNATIONAL NORM RATIO 1.1 (0.9-1.1); Prothrombin Time 13.7 SEC (11.1-13.3)
[2023-04-18 17:13] LABS: Anion Gap 14 (12-20); Blood Urea Nitrogen 27 mg/dL (9-16); C Reactive Protein 0.15 mg/dL (< or = 0.50); Calcium 9.3 mg/dL (8.4-10.2); Carbon Dioxide 30 mmol/L (22-29); Chloride 105 mmol/L (96-108); Creatinine Clr Calc Pharmacy 49.1; Estimated Glomerular Filt Rate 55; Glucose Random 96 mg/dL (60-115); Magnesium 2.1 mg/dL (1.6-2.6); Potassium 3.9 mmol/L (3.3-5.1); Sodium 145 mmol/L (135-145)
[2023-04-18 17:38] LABS: Erythrocyte Sedimentation Rate 18 MM/HR (0-20)
[2023-04-18 19:11] VITALS: BP 148/50; PULSE 92; RESP 18; O2SAT 96
[2023-04-18 19:12] LABS: Glucose, Whole Blood 60 mg/dL (60-115)
[2023-04-18] MEDS: 0.9 % Sodium Chloride 1,000 ML 999 ML IV (19:20)
--- NOTE | 2023-04-18 19:25 | PC.NURSE ---
Per provider fluids to be D/C at this time.
== END 2023-04-18 20:08 | disposition home or self-care (01) ==
PROVIDERS: Physician Assistant Medical; Emergency Provider Emergency Medicine
DX: I87.2 Venous insufficiency (chronic) (peripheral) (principal); R60.0 Localized edema; E11.9 Type 2 diabetes mellitus without complications; Z79.4 Long term (current) use of insulin; Z79.899 Other long term (current) drug therapy
CPT/HCPCS: 36415; 73610; 73630; 80048; 82947; 83735; 85025; 85610; 85652; 86140; 93971; 99284